=== PATIENT | male | born 1960 | race Caucasian/White ===

== ENCOUNTER 2016-10-14 09:42 | Emergency (ER) | payer MEDICARE ==
[~2016-10-14] VITALS: Ht 162.6 cm; Wt 76.4 kg
[~2016-10-14 09:42] MED LIST: COZAAR50 MG PO; GLYBURIDE2.5 MG PO; KLOR-CON M2020 MEQ PO; LEVOTHYROXIN25 MC1 PO; LORTAB 1010 MG PO; METFORMIN500 MG PO; PAXIL40 MG PO; URSO FORTE500 MG OR
[2016-10-14 10:54] LABS: HEMOGLOBIN 10.5 g/dl (14.0-18.0); IMMATURE GRANULOCYTES 0.4 % (0.0-1.0); MEAN CELL VOLUME 78.7 fL CALC (80.0-100.0); MEAN CORPUSCULAR HGB 23.6 pG CALC (26.0-32.0); NEUT# 3.72 thou/uL (1.82-7.42); RED BLOOD COUNT 4.45 mill/uL (4.70-6.10); RED CELL DISTRI WIDTH 15.9 % (11.5-15.5)
[2016-10-14] MEDS ORDERED: PREDNISONE5 MG PO (10:55)
[2016-10-14 10:56] LABS: URINE BILIRUBIN - DIPSTICK NEGATIVE (NEGATIVE); URINE BLOOD DIPSTICK LARGE (NEGATIVE); URINE CLARITY TURBID; URINE COLOR YELLOW; URINE GLUCOSE - DIPSTICK NEGATIVE (NEGATIVE); URINE KETONE NEGATIVE (NEGATIVE); URINE LEUK ESTERASE LARGE (NEGATIVE); URINE NITRITE - DIPSTICK NEGATIVE (Negative); URINE PH 6.5 (4.5-8.0); URINE PROTEIN - DIPSTICK >=300 mg/dL (NEG-TRACE); URINE SPECIFIC GRAVITY 1.025; URINE UROBILINOGEN - DIPSTICK 0.2 E.U./dL (0.2); URINE WBC TNTC WBC/hpf (0-5)
[2016-10-14] MEDS ORDERED: JANUVIA100 MG PO (10:58)
[2016-10-14] MEDS ORDERED: SERTRALINE HCL25 MG PO (10:58)
[2016-10-14] MEDS ORDERED: FAMOTIDINE20 M1 PO (10:59)
[2016-10-14] MEDS ORDERED: HYDROCHLOROT25 MG PO (11:00)
[2016-10-14 11:02] LABS: ALBUMIN 4.4 g/dL (3.2-5.0); ALKALINE PHOSPHATASE 77 u/l (38-126); AMYLASE 56 u/l (30-110); ANION GAP 20 (6-22 (CALC)); BUN 11 mg/dL (9-20); BUN/CREATININE RATIO 11 (12-20 (CALC)); CALCIUM 9.9 mg/dL (8.4-10.2); CARBON DIOXIDE 24 mmol/l (22-30); CHLORIDE 100 mmol/l (95-108); GFR > 60 ML/MIN (>=60 (CALC)); GFR FOR AFR.AMER. > 60 ML/MIN (>=60 (CALC)); GLUCOSE 181 mg/dL (75-110); LIPASE 96 u/l (23-300); POTASSIUM 3.6 mmol/l (3.5-5.1); SGOT/AST 22 u/l (17-59); SGPT/ALT 27 u/l (21-72); SODIUM 141 mmol/l (137-146); TOTAL PROTEIN 8.1 g/dL (6.3-8.2)
[2016-10-14 11:13] LABS: MYOGLOBIN 26 ng/mL (0 - 121)
[2016-10-14] MEDS ORDERED: KEFLEX500 MG PO (11:49)
[2016-10-14] MEDS ORDERED: MACROBID100 MG PO (12:28)
[2016-10-14] MEDS ORDERED: PYRIDIUM200 MG PO (12:28)
[2016-10-14 13:09] VITALS: BP 144/98
== END 2016-10-14 13:15 | disposition home or self-care (01) ==
LOC: ED 09:42
PROVIDERS: Emergency Medicine
DX: N39.0 Urinary tract infection, site not specified (principal); E03.9 Hypothyroidism, unspecified; K76.89 Other specified diseases of liver; E11.9 Type 2 diabetes mellitus without complications; I10 Essential (primary) hypertension; F41.9 Anxiety disorder, unspecified; F17.220 Nicotine dependence, chewing tobacco, uncomplicated; R94.31 Abnormal electrocardiogram [ECG] [EKG]; Z87.440 Personal history of urinary (tract) infections; B96.89 Other specified bacterial agents as the cause of diseases classified elsewhere

== ENCOUNTER 2021-12-01 18:31 | Emergency (ER) | payer MEDICARE ==
[~2021-12-01] VITALS: Ht 170.2 cm; Wt 61.2 kg
[~2021-12-01 18:31] MED LIST changes: +ALPRAZOLAM PO; +AUGMENTIN875TAB PO; +FAMOTIDINE20 M1 PO; +GNP RED YEAST RICE PO; +HYDROCHLOROT25 MG PO; +JANUVIA100 MG PO; +KEFLEX500 MG PO; +Levaquin PO; +MACROBID100 MG PO; +PREDNISONE5 MG PO; +PYRIDIUM200 MG PO; +SERTRALINE HCL25 MG PO; +TYLENOL PM PO
[2021-12-01 18:54] VITALS: BP 156/88
[2021-12-01 19:00] VITALS: BP 160/85
[2021-12-01 19:15] VITALS: BP 145/89
[2021-12-01 19:26] LABS: URINE BILIRUBIN - DIPSTICK NEGATIVE (NEGATIVE); URINE BLOOD DIPSTICK LARGE (NEGATIVE); URINE COLOR YELLOW; URINE GLUCOSE - DIPSTICK >=1000 mg/dL (NEGATIVE); URINE KETONE NEGATIVE (NEGATIVE); URINE PROTEIN - DIPSTICK TRACE mg/dL (NEG-TRACE); URINE UROBILINOGEN - DIPSTICK 0.2 E.U./dL (0.2)
[2021-12-01 19:27] LABS: URINE LEUK ESTERASE SMALL (NEGATIVE); URINE NITRITE - DIPSTICK NEGATIVE (Negative)
[2021-12-01 19:27] LABS: HEMATOCRIT 38.1 % (39.0-50.0); HEMOGLOBIN 11.7 g/dl (14.0-18.0); IMMATURE GRANULOCYTES 0.2 % (0.0-5.0); MEAN CORPUSCULAR HGB 25.2 pG CALC (26.0-32.0); MEAN CORPUSCULAR HGB CONC 30.7 g/dL CAL (32.0-36.0); NEUT# 3.79 thou/uL (1.82-7.42); RED BLOOD COUNT 4.64 mill/uL (4.70-6.10); RED CELL DISTRI WIDTH 14.5 % (11.5-15.5)
[2021-12-01 19:30] VITALS: BP 144/82
[2021-12-01 19:35] LABS: URINE BACTERIA FEW hpf; URINE WBC TNTC WBC/hpf (0-5)
[2021-12-01 19:38] LABS: ALBUMIN 3.9 g/dL (3.2-5.0); BUN 8 mg/dL (9-20); BUN/CREATININE RATIO 10 (12-20 (CALC)); CHLORIDE 99 mmol/l (95-108); CREATININE 0.8 mg/dL (0.7-1.3); GFR FOR AFR.AMER. > 60 ML/MIN (>=60 (CALC)); GFR OTHER RACES > 60 ML/MIN (>=60 (CALC)); LIPASE 185 u/l (23-300); POTASSIUM 3.5 mmol/l (3.5-5.1); SGOT/AST 23 u/l (17-59); TOTAL PROTEIN 6.7 g/dL (6.3-8.2)
[2021-12-01 19:45] VITALS: BP 165/85
[2021-12-01 19:46] LABS: ALKALINE PHOSPHATASE 166 u/l (38-126); ANION GAP 17 (6-22 (CALC)); BILIRUBIN, TOTAL 1.4 mg/dL (0.0-1.4); CARBON DIOXIDE 21 mmol/l (22-30); SODIUM 133 mmol/l (137-146)
[2021-12-01 19:52] LABS: MEAN CELL VOLUME 82.1 fL CALC (80.0-100.0)
[2021-12-01 20:00] VITALS: BP 165/85
[2021-12-01] MEDS ORDERED: BACTRIM DS1 TAB PO (21:48)
[2021-12-01] MEDS ORDERED: METFORMIN HCL500 M1 PO (21:48)
== END 2021-12-01 22:15 | disposition home or self-care (01) ==
LOC: ED 18:31
PROVIDERS: Nurse Practitioner
DX: N39.0 Urinary tract infection, site not specified (principal); E11.65 Type 2 diabetes mellitus with hyperglycemia; R62.50 Unspecified lack of expected normal physiological development in childhood; F17.200 Nicotine dependence, unspecified, uncomplicated

== ENCOUNTER 2022-04-25 08:21 | Inpatient (IN) | payer MEDICARE ==
[~2022-04-25] VITALS: Ht 170.2 cm; Wt 59.9 kg
[2022-04-25] VITALS (16 sets, daily range): BP systolic 114–147; BP diastolic 54–85
[~2022-04-25 08:21] MED LIST changes: +BACTRIM DS1 TAB PO; +METFORMIN HCL500 M1 PO; -SERTRALINE HCL25 MG PO; +SERTRALINE50 MG PO
[2022-04-25 08:42] LABS: HEMATOCRIT 27.2 % (39.0-50.0); HEMOGLOBIN 8.5 g/dl (14.0-18.0); IMMATURE GRANULOCYTES 0.4 % (0.0-5.0); MEAN CELL VOLUME 84.2 fL CALC (80.0-100.0); MEAN CORPUSCULAR HGB 26.3 pG CALC (26.0-32.0); MEAN CORPUSCULAR HGB CONC 31.3 g/dL CAL (32.0-36.0); NEUT# 14.67 thou/uL (1.82-7.42); RED BLOOD COUNT 3.23 mill/uL (4.70-6.10); RED CELL DISTRI WIDTH 15.6 % (11.5-15.5)
[2022-04-25 09:00] LABS: ALBUMIN 3.3 g/dL (3.2-5.0); ALKALINE PHOSPHATASE 87 u/l (38-126); BILIRUBIN, TOTAL 1.3 mg/dL (0.0-1.4); CARBON DIOXIDE 21 mmol/l (22-30); CHLORIDE 109 mmol/l (95-108); CREATININE 0.9 mg/dL (0.7-1.3); GFR FOR AFR.AMER. > 60 ML/MIN (>=60 (CALC)); GFR OTHER RACES > 60 ML/MIN (>=60 (CALC)); LIPASE 93 u/l (23-300); POTASSIUM 3.4 mmol/l (3.5-5.1); SGOT/AST 30 u/l (17-59); TOTAL PROTEIN 5.4 g/dL (6.3-8.2)
[2022-04-25 09:02] LABS: ANION GAP 15 (6-22 (CALC)); BUN 51 mg/dL (9-20); BUN/CREATININE RATIO 57 (12-20 (CALC)); SODIUM 142 mmol/l (137-146)
[2022-04-25] MEDS ORDERED: TRESIBA FL100 UNIT/M IJ (09:05)
[2022-04-25 09:34] LABS: URINE BILIRUBIN - DIPSTICK NEGATIVE (NEGATIVE); URINE BLOOD DIPSTICK TRACE-INTACT (NEGATIVE); URINE COLOR YELLOW; URINE GLUCOSE - DIPSTICK NEGATIVE (NEGATIVE); URINE KETONE TRACE mg/dL (NEGATIVE); URINE PROTEIN - DIPSTICK NEGATIVE (NEG-TRACE); URINE SPECIFIC GRAVITY 1.015; URINE UROBILINOGEN - DIPSTICK 0.2 E.U./dL (0.2)
[2022-04-25 09:38] LABS: URINE LEUK ESTERASE LARGE (NEGATIVE); URINE NITRITE - DIPSTICK NEGATIVE (Negative)
[2022-04-25 09:51] LABS: URINE RBC 0-2 RBC/hpf (0-5)
[2022-04-25 09:54] LABS: URINE BACTERIA MODERATE hpf
[2022-04-25 13:04] LABS: ACT PARTIAL THROMBO TIME 20.7 SECONDS (20.0-32.5); INTERNATIONAL NORMALIZED RATIO 1.3 RATIO (0.7-1.3); PROTHROMBIN TIME 12.5 SECONDS (9.0-12.5)
[2022-04-25 18:35] LABS: HEMATOCRIT 21.4 % (39.0-50.0)
[2022-04-25 18:42] LABS: HEMOGLOBIN 6.8 g/dl (14.0-18.0)
[2022-04-26] VITALS (20 sets, daily range): BP systolic 107–151; BP diastolic 45–74
[2022-04-26 07:15] LABS: HEMATOCRIT 22.1 % (39.0-50.0); HEMOGLOBIN 7.2 g/dl (14.0-18.0); MEAN CELL VOLUME 83.4 fL CALC (80.0-100.0); MEAN CORPUSCULAR HGB 27.2 pG CALC (26.0-32.0); MEAN CORPUSCULAR HGB CONC 32.6 g/dL CAL (32.0-36.0); RED BLOOD COUNT 2.65 mill/uL (4.70-6.10); RED CELL DISTRI WIDTH 15.5 % (11.5-15.5)
[2022-04-26 08:12] LABS: ANION GAP 9 (6-22 (CALC)); BUN 39 mg/dL (9-20); BUN/CREATININE RATIO 45 (12-20 (CALC)); CARBON DIOXIDE 19 mmol/l (22-30); CHLORIDE 117 mmol/l (95-108); CREATININE 0.9 mg/dL (0.7-1.3); GFR FOR AFR.AMER. > 60 ML/MIN (>=60 (CALC)); GFR OTHER RACES > 60 ML/MIN (>=60 (CALC)); MAGNESIUM 1.7 mg/dL (1.6-2.3); POTASSIUM 3.3 mmol/l (3.5-5.1); SODIUM 142 mmol/l (137-146)
[2022-04-26 12:50] LABS: HEMATOCRIT 22.6 % (39.0-50.0); HEMOGLOBIN 7.1 g/dl (14.0-18.0)
[2022-04-27 04:30] VITALS: BP 110/53
[2022-04-27 05:41] LABS: HEMATOCRIT 24.3 % (39.0-50.0); HEMOGLOBIN 7.8 g/dl (14.0-18.0); MEAN CELL VOLUME 86.8 fL CALC (80.0-100.0); MEAN CORPUSCULAR HGB 27.9 pG CALC (26.0-32.0); MEAN CORPUSCULAR HGB CONC 32.1 g/dL CAL (32.0-36.0); NEUT# 2.36 thou/uL (1.82-7.42); RED BLOOD COUNT 2.8 mill/uL (4.70-6.10); RED CELL DISTRI WIDTH 15.7 % (11.5-15.5)
[2022-04-27 06:17] LABS: ALBUMIN 2.8 g/dL (3.2-5.0); ALKALINE PHOSPHATASE 73 u/l (38-126); ANION GAP 11 (6-22 (CALC)); BILIRUBIN, TOTAL 1.3 mg/dL (0.0-1.4); BUN 28 mg/dL (9-20); BUN/CREATININE RATIO 33 (12-20 (CALC)); CARBON DIOXIDE 19 mmol/l (22-30); CHLORIDE 117 mmol/l (95-108); CREATININE 0.8 mg/dL (0.7-1.3); GFR FOR AFR.AMER. > 60 ML/MIN (>=60 (CALC)); GFR OTHER RACES > 60 ML/MIN (>=60 (CALC)); POTASSIUM 3.4 mmol/l (3.5-5.1); SGOT/AST 29 u/l (17-59); SODIUM 144 mmol/l (137-146); TOTAL PROTEIN 4.9 g/dL (6.3-8.2)
[2022-04-27 06:31] VITALS: BP 127/55
[2022-04-27 07:16] VITALS: BP 127/55
[2022-04-27 09:52] VITALS: BP 130/60
[2022-04-27 10:10] VITALS: BP 130/60
[2022-04-27] MEDS ORDERED: CARAFATE1 GM PO (12:03)
[2022-04-27] MEDS ORDERED: PROTONIX40 M2 PO (12:03)
== END 2022-04-27 14:20 | disposition home or self-care (01) | DRG 378 ==
LOC: ED 08:21 → ED-I 12:00 → ED 12:33 → MS2 12:34
PROVIDERS: Emergency Medicine; Nurse Practitioner Family; ADMIT Internal Medicine; ATTEND Internal Medicine
PROC: 30233N1 Transfusion of Nonautologous Red Blood Cells into Peripheral Vein, Percutaneous Approach (ICD-10-PCS; principal; 2022-04-25)
PROC: 30233N1 Transfusion of Nonautologous Red Blood Cells into Peripheral Vein, Percutaneous Approach (ICD-10-PCS; 2022-04-26)
PROC: 30233N1 Transfusion of Nonautologous Red Blood Cells into Peripheral Vein, Percutaneous Approach (ICD-10-PCS; 2022-04-26)
PROC: 0DB98ZX Excision of Duodenum, Via Natural or Artificial Opening Endoscopic, Diagnostic (ICD-10-PCS; 2022-04-26)
PROC: 0DB78ZX Excision of Stomach, Pylorus, Via Natural or Artificial Opening Endoscopic, Diagnostic (ICD-10-PCS; 2022-04-26)
DX: K29.71 Gastritis, unspecified, with bleeding (principal); D62 Acute posthemorrhagic anemia; N39.0 Urinary tract infection, site not specified; K29.81 Duodenitis with bleeding; D69.6 Thrombocytopenia, unspecified; I10 Essential (primary) hypertension; E11.9 Type 2 diabetes mellitus without complications; F79 Unspecified intellectual disabilities; K74.60 Unspecified cirrhosis of liver; F17.220 Nicotine dependence, chewing tobacco, uncomplicated; Z79.4 Long term (current) use of insulin; Z87.442 Personal history of urinary calculi; Z20.822 Contact with and (suspected) exposure to COVID-19
CPT/HCPCS: J1756; J2060; P9016; Q9967; S0164

== ENCOUNTER 2022-05-28 10:42 | Day surgery (SDC) | payer MEDICARE ==
[~2022-05-28] VITALS: Ht 170.2 cm; Wt 68.0 kg
[~2022-05-28 10:42] MED LIST changes: +ALPRAZOLAM0.25 MG PO; +CARAFATE1 GM PO; +D325 MCG PO; +PROTONIX40 M2 PO; +TRESIBA FL100 UNIT/M IJ
[2022-05-28 15:13] VITALS: BP 135/72
== END 2022-05-28 14:35 | disposition home or self-care (01) ==
LOC: ENDO 10:42 → ORM 16:45 → ENDO 16:45
PROVIDERS: ATTEND Internal Medicine Gastroenterology
PROC: 0DB78ZX Excision of Stomach, Pylorus, Via Natural or Artificial Opening Endoscopic, Diagnostic (ICD-10-PCS; principal; 2022-05-28)
DX: K92.0 Hematemesis (principal); K29.50 Unspecified chronic gastritis without bleeding; B96.81 Helicobacter pylori [H. pylori] as the cause of diseases classified elsewhere; K29.80 Duodenitis without bleeding; K76.6 Portal hypertension; K31.89 Other diseases of stomach and duodenum

== ENCOUNTER 2022-12-30 16:49 | Emergency (ER) | payer MEDICARE ==
[2022-12-30] VITALS (12 sets, daily range): BP systolic 121–150; BP diastolic 62–99
[~2022-12-30] VITALS: Ht 170.2 cm; Wt 150.0 kg
[2022-12-30 18:43] LABS: BASO% 0.4 % (0-3); EOS% 3.3 % (0-8); HEMATOCRIT 26.7 % (39.0-50.0); HEMOGLOBIN 7.8 g/dl (14.0-18.0); IMMATURE GRANULOCYTES 0.4 % (0.0-5.0); LYMPH% 20.9 % (15-41); MEAN CORPUSCULAR HGB 23.4 pG CALC (26.0-32.0); MEAN CORPUSCULAR HGB CONC 29.2 g/dL CAL (32.0-36.0); MONO% 7.8 % (2-13); NEUT# 1.64 thou/uL (1.82-7.42); NEUT% 67.2 % (42-76); RED BLOOD COUNT 3.34 mill/uL (4.70-6.10); RED CELL DISTRI WIDTH 15.4 % (11.5-15.5)
[2022-12-30 18:47] LABS: MEAN CELL VOLUME 79.9 fL CALC (80.0-100.0)
[2022-12-30 18:58] LABS: ALKALINE PHOSPHATASE 101 u/l (38-126); ANION GAP 15 (6-22 (CALC)); BUN 9 mg/dL (8-23); BUN/CREATININE RATIO 11 (12-20 (CALC)); CARBON DIOXIDE 21 mmol/l (22-30); CHLORIDE 109 mmol/l (95-108); CREATININE 0.8 mg/dL (0.7-1.3); GFR FOR AFR.AMER. > 60 ML/MIN (>=60 (CALC)); GFR OTHER RACES > 60 ML/MIN (>=60 (CALC)); POTASSIUM 3.8 mmol/l (3.5-5.1); SGOT/AST 30 u/l (19-48); SODIUM 141 mmol/l (137-146)
[2022-12-30 19:00] LABS: ALBUMIN 3.9 g/dL (3.2-5.0); TOTAL PROTEIN 6.7 g/dL (6.3-8.2)
== END 2022-12-30 20:25 | disposition home or self-care (01) ==
LOC: ED 16:49
PROVIDERS: Family Medicine
DX: M25.562 Pain in left knee (principal); I10 Essential (primary) hypertension; E11.9 Type 2 diabetes mellitus without complications; M35.9 Systemic involvement of connective tissue, unspecified; F79 Unspecified intellectual disabilities; F17.200 Nicotine dependence, unspecified, uncomplicated